=== PATIENT | male | born 1955 | race Caucasian/White ===

== ENCOUNTER 2021-07-13 08:47 | Day surgery (SDC) | payer MEDICARE, BC ==
[~2021-07-13] VITALS: Ht 182.9 cm; Wt 90.1 kg
[~2021-07-13 08:47] MED LIST: Advil200 M1 PO; Metformin HCl750 MG PO; Prinivil10 MG PO; ROSU10TA PO
--- NOTE | 2021-07-13 10:05 | NUR ---
07/13/21 Hernando5 MARTINA ALEXANDER 2 ATTEMPTS AT IV. FIRST ATTEMPT BY MA IN R HAND MISSED. SECOND ATTEMPT BY MA IN R FOREARM SUCCESSFUL.
== END 2021-07-13 11:10 | disposition home or self-care (01) ==
LOC: ORSCSDS 08:47
PROVIDERS: Surgery
PROC: 0DBM8ZX Excision of Descending Colon, Via Natural or Artificial Opening Endoscopic, Diagnostic (ICD-10-PCS; principal; 2021-07-13 10:15)
DX: Z12.11 Encounter for screening for malignant neoplasm of colon (principal); Z86.010 Personal history of colon polyps; Z80.0 Family history of malignant neoplasm of digestive organs; D12.4 Benign neoplasm of descending colon; K57.30 Diverticulosis of large intestine without perforation or abscess without bleeding; I10 Essential (primary) hypertension; E11.9 Type 2 diabetes mellitus without complications; E78.5 Hyperlipidemia, unspecified; Z79.84 Long term (current) use of oral hypoglycemic drugs; Z79.899 Other long term (current) drug therapy
CPT/HCPCS: 82947; 88305; J2704; J7120

== ENCOUNTER → 2022-06-22 | Outpatient (CLI) | payer MEDICARE, BC ==
[2022-06-22 19:58] LABS: Microalb/Creat Ratio UR, Rand 5.667 mg/g (0.000-30.000); Microalbumin, Random Urine 10.2 mg/L (0.000-20.000)
== END ==
LOC: LAB SHORT 17:40
PROVIDERS: Family Medicine
DX: E11.9 Type 2 diabetes mellitus without complications (principal)
CPT/HCPCS: 82043; 82570

== ENCOUNTER → 2022-09-11 | Outpatient (CLI) | payer MEDICARE, BC ==
[2022-09-11 12:24] LABS: BASOPHILS ABSOLUTE AUTO 0.05 K/mm3 (0.00-0.23); BASOPHILS PERCENT AUTO 1 % (0-2); EOSINOPHILS ABSOLUTE AUTO 0.44 K/mm3 (0.00-0.68); EOSINOPHILS PERCENT AUTO 7 % (0-6); Hematocrit 46.7 % (37.0-53.0); Hemoglobin 15.9 g/dL (13.5-17.5); IMMATURE GRAN ABSOLUTE AUTO 0.01 K/mm3 (0.00-0.10); IMMATURE GRAN PERCENT AUTO 0 % (0-1); LYMPHOCYTES ABSOLUTE AUTO 1.22 K/mm3 (0.84-5.20); LYMPHOCYTES PERCENT AUTO 21 % (21-46); MONOCYTES ABSOLUTE AUTO 0.45 K/mm3 (0.16-1.47); MONOCYTES PERCENT AUTO 8 % (4-13); Mean Corpuscular HGB 30.9 pg (26.0-34.0); Mean Corpuscular Volume 91 fL (80-100); Mean Platelet Volume 10.3 fL (9.1-12.4); NEUTROPHILS ABSOLUTE AUTO 3.76 K/mm3 (1.96-9.15); NEUTROPHILS PERCENT AUTO 63 % (41-73); Platelet Count 251 K/mm3 (150-400); RDW Coefficient Variation 12.4 % (11.7-14.2); RDW Standard Deviation 41.1 fL (35.1-46.3); Red Blood Cell Count 5.14 M/mm3 (4.30-5.90); White Blood Cell Count 5.93 K/mm3 (4.00-11.30)
== END | disposition home or self-care (01) ==
LOC: LAB SHORT 12:03 → LAB 12:03
PROVIDERS: Family Medicine
DX: R22.1 Localized swelling, mass and lump, neck (principal)
CPT/HCPCS: 85025

== ENCOUNTER → 2022-10-09 | Outpatient (CLI) | payer MEDICARE, BC ==
[2022-10-09 14:58] LABS: BASOPHILS ABSOLUTE AUTO 0.06 K/mm3 (0.00-0.23); BASOPHILS PERCENT AUTO 1 % (0-2); EOSINOPHILS ABSOLUTE AUTO 0.41 K/mm3 (0.00-0.68); EOSINOPHILS PERCENT AUTO 4 % (0-6); Hematocrit 47.6 % (37.0-53.0); Hemoglobin 16.4 g/dL (13.5-17.5); IMMATURE GRAN ABSOLUTE AUTO 0.03 K/mm3 (0.00-0.10); IMMATURE GRAN PERCENT AUTO 0 % (0-1); LYMPHOCYTES ABSOLUTE AUTO 1.26 K/mm3 (0.84-5.20); LYMPHOCYTES PERCENT AUTO 13 % (21-46); MONOCYTES ABSOLUTE AUTO 0.67 K/mm3 (0.16-1.47); MONOCYTES PERCENT AUTO 7 % (4-13); Mean Corpuscular HGB 30.8 pg (26.0-34.0); Mean Corpuscular HGB Conc 34.5 g/dL (31.5-36.5); Mean Corpuscular Volume 90 fL (80-100); Mean Platelet Volume 10.3 fL (9.1-12.4); NEUTROPHILS ABSOLUTE AUTO 7.42 K/mm3 (1.96-9.15); NEUTROPHILS PERCENT AUTO 75 % (41-73); Platelet Count 240 K/mm3 (150-400); RDW Coefficient Variation 12.4 % (11.7-14.2); RDW Standard Deviation 40.6 fL (35.1-46.3); Red Blood Cell Count 5.32 M/mm3 (4.30-5.90); White Blood Cell Count 9.85 K/mm3 (4.00-11.30)
[2022-10-09 15:36] LABS: Microalb/Creat Ratio UR, Rand 5.351 mg/g (0.000-30.000); Microalbumin, Random Urine 8.08 mg/L (0.000-20.000)
== END | disposition home or self-care (01) ==
LOC: LAB SHORT 11:56 → LAB 11:56
PROVIDERS: Family Medicine
DX: E11.9 Type 2 diabetes mellitus without complications (principal); R22.1 Localized swelling, mass and lump, neck
CPT/HCPCS: 82043; 82570; 83036; 85025

== ENCOUNTER 2022-11-12 07:52 | Day surgery (SDC) | payer MEDICARE, BC ==
[~2022-11-12] VITALS: Ht 180.3 cm; Wt 90.2 kg
--- NOTE | 2022-11-12 10:05 | NUR ---
11/12/22 Jemima Escobar 10ML OF BUPIVACAINE 0.25% MIXED AND VERIFIED WITH 0.1ML OF EPI (1MG/ML) TO MAKE BUPIVACAINE 0.25% WITH EPI 1:100,000 FOR INJECTION AT [facility] BY DR HERNÁNDEZ.
--- NOTE | 2022-11-12 10:49 | NUR ---
11/12/22 1049 MARIA VICTORIA GILLIAM PT COUGHING IN POSTOP. DR. SEO STATES THAT THIS IS GOING TO BE NORMAL FOR HIM AT THIS TIME. HE WAS PLACED ON 12L 02 VIA FACE TENT BY DR. SEO WITH ADMIT. O2 WAS DIPPING INTO HIGH 80'S. PT VERY SLEEPY AT THIS TIME. TRIAL ON 5L
--- NOTE | 2022-11-12 11:23 | NUR ---
11/12/22 1123 MARIA VICTORIA GILLIAM USING ADDITIONAL MONITOR FOR PULSE OX ROOM O2 MONITOR IS NOT PICKING UP O2 OR PULSE ADEQUATLY. VITALS REMAIN WNL. AT BEDSIDE. WE ARE ALSO TRYING TO FIGURE "WHERE" PT MEDICATIONS FOR PAIN WERE SENT TO PHARMACY DENIES HAVING AN RX AT [facility].
[2022-11-12 12:03] VITALS: BP 129/74
== END 2022-11-12 12:44 | disposition home or self-care (01) ==
LOC: ORSCSDS 07:52
PROVIDERS: Otolaryngology
PROC: 0CBM8ZX Excision of Pharynx, Via Natural or Artificial Opening Endoscopic, Diagnostic (ICD-10-PCS; principal; 2022-11-12 09:25)
DX: C10.9 Malignant neoplasm of oropharynx, unspecified (principal); I10 Essential (primary) hypertension; E11.9 Type 2 diabetes mellitus without complications; E78.00 Pure hypercholesterolemia, unspecified; Z79.84 Long term (current) use of oral hypoglycemic drugs; Z79.899 Other long term (current) drug therapy
CPT/HCPCS: 82947; 88305; 88342; A9270; J0171; J0330; J0690; J1100; J2250; J2405; J2704; J3010; J7120

== ENCOUNTER → 2022-12-19 | Outpatient (CLI) | payer MEDICARE, BC ==
[2022-12-19 10:17] LABS: Calcium, Blood 8.3 mg/dL (8.5-10.1); Creatinine, Blood 2.53 mg/dL (0.60-1.20)
== END ==
LOC: LAB 08:18 → LAB SHORT 08:18
PROVIDERS: Nurse Practitioner
DX: C10.9 Malignant neoplasm of oropharynx, unspecified (principal); N28.9 Disorder of kidney and ureter, unspecified
CPT/HCPCS: 80048

== ENCOUNTER → 2023-02-28 | Outpatient (CLI) | payer MEDICARE, BC | LOC: LAB SHORT 12:16 → LAB 12:16 | DX: R82.90 Unspecified abnormal findings in urine (principal) | CPT/HCPCS: 87086 ==

== ENCOUNTER 2024-05-06 12:45 | Emergency (ER) | payer MEDICARE, BC ==
[~2024-05-06] VITALS: Ht 182.9 cm; Wt 93.0 kg
[2024-05-06 15:27] VITALS: BP 154/85
== END 2024-05-06 15:50 | disposition home or self-care (01) ==
LOC: ER 12:45
DX: T18.128A Food in esophagus causing other injury, initial encounter (principal); K22.89 Other specified disease of esophagus; Z88.8 Allergy status to other drugs, medicaments and biological substances; Z79.84 Long term (current) use of oral hypoglycemic drugs; Z79.899 Other long term (current) drug therapy; W44.F3XA Food entering into or through a natural orifice, initial encounter
CPT/HCPCS: 71250; 99283-25

== ENCOUNTER → 2024-06-02 | Outpatient (CLI) | payer MEDICARE, BC | LOC: LAB 11:16 → LAB SHORT 11:16 | DX: L30.8 Other specified dermatitis (principal) | CPT/HCPCS: 88305; 88312 ==

== ENCOUNTER 2024-06-15 07:56 | Day surgery (SDC) | payer MEDICARE, BC ==
[~2024-06-15] VITALS: Ht 182.9 cm; Wt 87.7 kg
[~2024-06-15 07:56] MED LIST changes: +Lactated Ringer's 1,000 ML IV ONE; +propofoL 50 ML IV ONE
[2024-06-15] MEDS ORDERED: VITAMIN D310 MC4 (09:10)
[2024-06-15] MEDS ORDERED: Vitamin B-12100 MCG (09:11)
[2024-06-15] MEDS ORDERED: Vitamin B Comple1 EA (09:12)
[2024-06-15] MEDS ORDERED: Lactated Ringer's 1,000 ML IV ONE (09:45)
[2024-06-15 10:56] VITALS: BP 154/83
== END 2024-06-15 10:46 | disposition home or self-care (01) ==
LOC: ORSCSDS 07:56
PROVIDERS: Specialist
PROC: 0D758ZZ Dilation of Esophagus, Via Natural or Artificial Opening Endoscopic (ICD-10-PCS; principal; 2024-06-15 10:00)
PROC: 0DB58ZX Excision of Esophagus, Via Natural or Artificial Opening Endoscopic, Diagnostic (ICD-10-PCS; principal; 2024-06-15 10:00)
PROC: 0DB68ZX Excision of Stomach, Via Natural or Artificial Opening Endoscopic, Diagnostic (ICD-10-PCS; principal; 2024-06-15 10:00)
DX: R13.10 Dysphagia, unspecified (principal); Z80.0 Family history of malignant neoplasm of digestive organs; Z85.819 Personal history of malignant neoplasm of unspecified site of lip, oral cavity, and pharynx; K22.2 Esophageal obstruction; E11.9 Type 2 diabetes mellitus without complications; Z79.899 Other long term (current) drug therapy
CPT/HCPCS: 82947; 88305; 88342; C1769; J2704; J7120

== ENCOUNTER → 2025-02-02 | Outpatient (CLI) | payer MEDICARE, BC ==
[~2025-02-02] MED LIST changes: -Lactated Ringer's 1,000 ML IV ONE; +VITAMIN D310 MC4; +Vitamin B Comple1 EA; +Vitamin B-12100 MCG; -propofoL 50 ML IV ONE
== END ==
LOC: LAB SHORT 11:30 → LAB 11:30
DX: E11.9 Type 2 diabetes mellitus without complications (principal)
CPT/HCPCS: 83036